=== PATIENT | female | born 1940 | race African-American/Black ===

== ENCOUNTER 2017-06-27 09:14 | Observation (INO) ==
[2017-06-27] MEDS ORDERED: DEXAMETHASONE 4 MG/1 ML VIAL IM STA (11:22)
[2017-06-27] MEDS ORDERED: ASPIRIN 325 MG TABLET PO STA (11:46)
[2017-06-27] MEDS ORDERED: METOPROLOL TARTRATE 25 MG TABLET PO STA (11:51)
[2017-06-27] MEDS ORDERED: ONDANSETRON 4 MG/2 ML VIAL IV STA (11:51)
[2017-06-27] MEDS ORDERED: MORPHINE 2 MG/1 ML SYRINGE IV STA (11:51)
[2017-06-27] MEDS ORDERED: NITROGLYCERIN 2% OINT 1 INCH/GM PACK TOP STA (11:51)
[2017-06-27] MEDS ORDERED: NITROGLYCERIN 2% OINT 1 INCH/GM PACK TOP ONE (12:18)
[2017-06-27] MEDS ORDERED: DEXAMETHASONE 10 MG/1 ML VIAL ONE (12:19)
[2017-06-27] MEDS ORDERED: MORPHINE 2 MG/1 ML SYRINGE ONE (12:19)
[2017-06-27] MEDS ORDERED: ONDANSETRON 4 MG/2 ML VIAL ONE (12:19)
[2017-06-27] MEDS ORDERED: METOPROLOL TARTRATE 25 MG TABLET ONE (12:19)
[2017-06-27] MEDS ORDERED: ASPIRIN 325 MG TABLET ONE (12:20)
[2017-06-27 12:27] LABS: Basophils % 0.5 % (0.0-0.8); Eosinophils % 0.5 % (0.00-10.9); Hematocrit 38.6 VOL% (35.7-47.0); Hemoglobin 12.8 GM/DL (12.0-16.0); Immature Granulocytes % 0.3 %; Immature Granulocytes Absolute 0.01 #; Lymphocytes # 1.6 10*3/uL (1.4-4.0); Lymphocytes % 42.4 % (21.3-54.2); Mean Corpuscular HGB Conc 33.2 GM/DL (32-36); Mean Corpuscular Hemoglobin 33 PG (27-34); Mean Platelet Volume 10.4 FL (9.6-12.0); Monocytes # 0.3 10*3/uL (0.11-0.8); Monocytes % 7.1 % (1.7-12.7); Neutrophils # 1.9 10*3/uL (1.4-7.4); Neutrophils % 49.2 % (38.7-73.9); Platelet Count 204 T/CUMM (130-400); Red Cell Distribution Width 14.3 % (9.3-17.3); White Blood Count 3.8 T/CUMM (4-12)
[2017-06-27 12:44] LABS: PT Patient Result 10.5 SECS
[2017-06-27 12:54] LABS: Magnesium 2.4 MG/DL (1.8-2.4)
[2017-06-27 13:00] LABS: Albumin 3.9 G/DL (3.4-5.0); Bilirubin,Total 0.4 MG/DL (0.2-1.0); Calcium 9.3 MG/DL (8.5-10.1); Osmolality,Calculated 280.1 MOS/KG (273-304); Potassium 3.4 MMOL/L (3.5-5.1); Total Protein 7.8 G/DL (6.4-8.3)
[2017-06-27] MEDS ORDERED: BISACODYL 5 MG TABLET PO PRN (14:21)
[2017-06-27] MEDS ORDERED: ACETAMINOPHEN 325 MG TABLET PO PRN (14:21)
[2017-06-27] MEDS ORDERED: ONDANSETRON 4 MG/2 ML VIAL IV PRN (14:21)
[2017-06-27] MEDS ORDERED: predniSONE 20 MG TABLET PO SCH (14:30)
[2017-06-27] MEDS ORDERED: ENOXAPARIN 40 MG/0.4 ML SYRINGE SUBCUT SCH (17:00)
[2017-06-27] MEDS: predniSONE 20 MG TABLET PO SCH (20:10)
[2017-06-27] MEDS: ENOXAPARIN 40 MG/0.4 ML SYRINGE SUBCUT SCH (20:40)
[2017-06-28 06:59] LABS: Hematocrit 35.5 VOL% (35.7-47.0); Hemoglobin 11.8 GM/DL (12.0-16.0); Immature Granulocytes % 0.3 %; Immature Granulocytes Absolute 0.01 #; Lymphocytes # 0.7 10*3/uL (1.4-4.0); Lymphocytes % 21.6 % (21.3-54.2); Mean Corpuscular HGB Conc 33.2 GM/DL (32-36); Mean Corpuscular Hemoglobin 32 PG (27-34); Mean Corpuscular Volume 97.5 FL (87-102); Mean Platelet Volume 10.6 FL (9.6-12.0); Monocytes # 0.1 10*3/uL (0.11-0.8); Monocytes % 1.8 % (1.7-12.7); Neutrophils # 2.5 10*3/uL (1.4-7.4); Neutrophils % 76.3 % (38.7-73.9); Platelet Count 225 T/CUMM (130-400); Red Blood Count 3.64 MC/CUMM (3.8-5.5); Red Cell Distribution Width 13.8 % (9.3-17.3); White Blood Count 3.3 T/CUMM (4-12)
[2017-06-28 07:40] LABS: Calcium 8.7 MG/DL (8.5-10.1); Osmolality,Calculated 281.3 MOS/KG (273-304); Risk Ratio 2.53; VLDL CHOLESTEROL 10.4 MG/DL
[2017-06-28] MEDS ORDERED: ALBUTEROL INH PRN (09:32)
[2017-06-28] MEDS ORDERED: cloNIDine 0.1 MG TABLET PO PRN (09:32)
[2017-06-28] MEDS ORDERED: ALBUTEROL 0.63 MG/3 ML NEB RESP TX PRN (09:32)
[2017-06-28] MEDS ORDERED: METHOCARBAMOL 750 MG TABLET PO PRN (09:32)
[2017-06-28] MEDS ORDERED: NITROGLYCERIN SL 0.4 MG TABLET SL PRN (09:32)
[2017-06-28] MEDS ORDERED: FUROSEMIDE 20 MG TABLET PO PRN (09:32)
[2017-06-28] MEDS ORDERED: ALPRAZolam 0.25 MG TABLET PO PRN (09:32)
[2017-06-28] MEDS: predniSONE 20 MG TABLET PO SCH (09:39)
[2017-06-28] MEDS: PANTOPRAZOLE 40 MG TABLET PO SCH (09:39)
[2017-06-28] MEDS: VERAPAMIL 80 MG TABLET PO SCH ×2 (14:27→21:16)
[2017-06-28 14:55] LABS: Hepatitis C Virus Ab Quant 0.02 Index; Hepatitis C Virus Ab Result Negative (Negative)
[2017-06-28 14:57] LABS: Hepatitis B Surface Ab Result Positive
[2017-06-28] MEDS ORDERED: ATORVASTATIN 40 MG TABLET PO SCH (21:00)
[2017-06-28] MEDS: GABAPENTIN 100 MG CAPSULE PO SCH (21:15)
[2017-06-28] MEDS: BUDESONIDE/FORMOTEROL 160-4.5 INHALER 6 GM INH SCH (21:18)
[2017-06-28] MEDS: ENOXAPARIN 40 MG/0.4 ML SYRINGE SUBCUT SCH (21:19)
[2017-06-29 03:59] LABS: Hepatitis B Core Ab Result Positive (Negative); Hepatitis B Surface Ag Quant 0.15 Index; Hepatitis B Surface Ag Result Negative (Negative)
[2017-06-29] MEDS ORDERED: ceFAZolin 1,000 MG in SYRINGE 1 EACH IV ONE (07:00)
[2017-06-29] MEDS ORDERED: FLUTICASONE 50 MCG NASAL SPRAY 16 GM BOTTLE BOTH NARES SCH (09:00)
[2017-06-29] MEDS ORDERED: CETIRIZINE 10 MG TABLET PO SCH (09:00)
[2017-06-29] MEDS ORDERED: LEVOTHYROXINE 25 MCG TABLET PO SCH (09:00)
[2017-06-29] MEDS: GABAPENTIN 100 MG CAPSULE PO SCH (11:24)
[2017-06-29] MEDS: PANTOPRAZOLE 40 MG TABLET PO SCH (11:24)
[2017-06-29] MEDS: predniSONE 20 MG TABLET PO SCH (11:25)
[2017-06-29] MEDS: VERAPAMIL 80 MG TABLET PO SCH (11:25)
[2017-06-29] MEDS: BUDESONIDE/FORMOTEROL 160-4.5 INHALER 6 GM INH SCH (11:27)
[2017-06-29 13:50] VITALS: BP 146/73
[2017-07-02 14:46] LABS: Myeloperoxidase Antibody < 0.2 U
== END 2017-06-29 13:45 | disposition home or self-care (01) | DRG 159 ==
LOC: N.ED 09:14 → N.EDINP 14:20 → INTOOBSV 14:20 → SUATTDRO 14:20 → N.4E 15:45
PROVIDERS: ADMIT Internal Medicine; ATTEND Internal Medicine

== ENCOUNTER 2019-02-19 14:13 | Observation (INO) ==
[2019-02-19] MEDS ORDERED: ASPIRIN 325 MG TABLET PO STA (14:47)
[2019-02-19 15:05] LABS: Basophils % 0.5 % (0.0-0.8); Eosinophils # 0.2 10*3/uL (0.0-0.87); Eosinophils % 3.8 % (0.00-10.9); Hematocrit 37.8 VOL% (35.7-47.0); Hemoglobin 11.8 GM/DL (12.0-16.0); Immature Granulocytes % 0.3 %; Immature Granulocytes Absolute 0.01 #; Lymphocytes # 1.5 10*3/uL (1.4-4.0); Lymphocytes % 38.3 % (21.3-54.2); Mean Corpuscular HGB Conc 31.2 GM/DL (32-36); Mean Corpuscular Volume 101.1 FL (87-102); Mean Platelet Volume 10.4 FL (9.6-12.0); Monocytes % 10.3 % (1.7-12.7); Neutrophils % 46.8 % (38.7-73.9); Platelet Count 171 T/CUMM (130-400); Red Blood Count 3.74 MC/CUMM (3.8-5.5); Red Cell Distribution Width 13.4 % (9.3-17.3)
[2019-02-19 15:19] LABS: INR 0.9; PT Patient Result 10.3 SECS
[2019-02-19 15:38] LABS: Alanine Aminotransferase 27 U/L (13-56); Alkaline Phosphatase 80 U/L (45-117); Aspartate Amino Transferase 25 U/L (0-37); Bilirubin,Total < 0.39 MG/DL (0.2-1.0); Blood Urea Nitrogen 15 MG/DL (7-18); Calcium 9.3 MG/DL (8.5-10.1); Glucose 107 MG/DL (74-106); Osmolality,Calculated 286.8 MOS/KG (273-304); Total Protein 7.2 G/DL (6.4-8.3)
[2019-02-19] MEDS ORDERED: ONDANSETRON 4 MG/2 ML VIAL IV PRN (17:01)
[2019-02-19] MEDS ORDERED: ACETAMINOPHEN 325 MG TABLET PO PRN (17:01)
[2019-02-19] MEDS ORDERED: cloNIDine 0.1 MG TABLET PO PRN (17:18)
[2019-02-19] MEDS ORDERED: LINACLOTIDE 145 MCG CAPSULE PO PRN (17:18)
[2019-02-19] MEDS ORDERED: NITROGLYCERIN SL 0.4 MG TABLET SL PRN (17:18)
[2019-02-19] MEDS ORDERED: ALPRAZolam 0.25 MG TABLET PO PRN (17:18)
[2019-02-19] MEDS ORDERED: POTASSIUM CHLORIDE 20 MEQ TABLET PO PRN (17:29)
[2019-02-19] MEDS: ALBUTEROL 2.5 MG/3 ML NEB RESP TX SCH ×2 (19:09→23:42)
[2019-02-19] MEDS ORDERED: ATORVASTATIN 40 MG TABLET PO SCH (21:00)
[2019-02-19] MEDS: DOCUSATE SODIUM 100 MG CAPSULE PO SCH (21:11)
[2019-02-19] MEDS: cycloSPORINE OPH EMUL 1 VIAL BOTH EYES SCH (21:15)
[2019-02-20] MEDS: ALBUTEROL 2.5 MG/3 ML NEB RESP TX SCH ×4 (03:00→15:12)
[2019-02-20 04:46] LABS: Basophils % 0.5 % (0.0-0.8); Eosinophils # 0.2 10*3/uL (0.0-0.87); Eosinophils % 5.3 % (0.00-10.9); Hematocrit 38.2 VOL% (35.7-47.0); Hemoglobin 11.8 GM/DL (12.0-16.0); Immature Granulocytes % 0.2 %; Immature Granulocytes Absolute 0.01 #; Lymphocytes % 46.2 % (21.3-54.2); Mean Corpuscular HGB Conc 30.9 GM/DL (32-36); Mean Corpuscular Volume 100.8 FL (87-102); Mean Platelet Volume 10.9 FL (9.6-12.0); Monocytes % 10.8 % (1.7-12.7); Platelet Count 177 T/CUMM (130-400); Red Blood Count 3.79 MC/CUMM (3.8-5.5); Red Cell Distribution Width 13.3 % (9.3-17.3); White Blood Count 4.4 T/CUMM (4-12)
[2019-02-20 04:58] LABS: Amorphous Crystals,Urine Occasional /HPF (Few); Apearance,Urine CLEAR (Clear); Bacteria,Urine Occasional /HPF (Few); Bilirubin,Urine Negative (Negative); Blood, Urine Negative (Negative); Glucose,Urine (UA) Negative (Negative); Ketones,Urine Negative (Negative); Mucus,Urine Occasional /LPF (Occasional); Nitrite,Urine Negative (Negative); Protein,Urine Negative; RBC,Urine <1 /HPF (0-4); Squamous Epithelial Cell,Urine Occasional /HPF (0-10); Urine Color Yellow (Yellow); Urine Urobilinogen < 2.0 EU/DL (0.2-1.0); WBC,Urine 1 /HPF (0-6)
[2019-02-20 04:59] LABS: Osmolality,Calculated 283.8 MOS/KG (273-304); Risk Ratio 2.81; VLDL CHOLESTEROL 15.2 MG/DL
[2019-02-20 05:09] LABS: Eosinophils 3 % (0-10); Hypochromasia 1+; Lymphocytes 46 % (20-55); Platelet Estimate Adequate; Segmented Neutrophils 43 % (50-85); Total Cells Counted 100
[2019-02-20] MEDS ORDERED: LEVOTHYROXINE 25 MCG TABLET PO SCH (06:00)
[2019-02-20] MEDS ORDERED: ASPIRIN CHEW 81 MG TABLET PO SCH (09:00)
[2019-02-20] MEDS ORDERED: VERAPAMIL SR 240 MG TABLET PO SCH (09:00)
[2019-02-20] MEDS ORDERED: CETIRIZINE 10 MG TABLET PO SCH (09:00)
[2019-02-20] MEDS ORDERED: POTASSIUM CHLORIDE 10 MEQ TABLET PO SCH (09:00)
[2019-02-20] MEDS ORDERED: MONTELUKAST 10 MG TABLET PO SCH (09:00)
[2019-02-20] MEDS ORDERED: PANTOPRAZOLE 40 MG TABLET PO SCH (09:00)
[2019-02-20] MEDS ORDERED: Fluticasone Furoate-Vilanterol [Breo Ellipta] 1 PUFF INH SCH (09:00)
[2019-02-20] MEDS ORDERED: FUROSEMIDE 20 MG TABLET PO SCH (09:00)
[2019-02-20] MEDS ORDERED: CHOLECALCIFEROL 1,000 UNIT TABLET PO SCH (09:00)
[2019-02-20] MEDS ORDERED: FLUTICASONE 50 MCG NASAL SPRAY 16 GM BOTTLE BOTH NARES SCH (09:00)
[2019-02-20] MEDS: DOCUSATE SODIUM 100 MG CAPSULE PO SCH (09:27)
[2019-02-20] MEDS: cycloSPORINE OPH EMUL 1 VIAL BOTH EYES SCH (13:40)
[2019-02-20 16:14] VITALS: BP 113/59
== END 2019-02-20 18:46 | disposition home or self-care (01) ==
LOC: N.ED 14:13 → N.EDINP 14:13 → N.TELES 17:38
PROVIDERS: ADMIT Internal Medicine Nephrology; ATTEND Internal Medicine Nephrology